=== PATIENT | female | born 1960 | race Two or more races ===

== ENCOUNTER 2025-03-08 08:10 | Emergency (ER) | payer MEDICAID, OTHER ==
[~2025-03-08] VITALS: Ht 162.6 cm; Wt 83.2 kg
--- NOTE | 2025-03-08 08:59 | ED.PDOC ---
GI ASSESSMENT HPI Comments 64 y.o female with PMHX of HTN and DM, presents to the ED for a chief complaint of diffused abdominal pain radiating to her left flank and back associated with nausea, vomiting, body pain that started one day ago. Patient reports ongoing symptoms with no alleviating or precipitating factors. Patient denies any diarrhea, fever, chills, chest pain, SOB, bloody stool, dysuria or hematuria. 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 Family History Family History: Reviewed,noncontributory to illness Social History Smoker: Cigarettes, Less Than 1 Pack/Day Alcohol: Denies ETOH Use Drugs: Denies Drug Use Lives In: Home Constitutional: denies: chills, diaphoresis, fatigue, fever, malaise, sweats, weakness, others EENTM: denies: blurred vision, double vision, ear bleeding, ear discharge, ear drainage, ear pain, ear ringing, eye pain, eye redness, hearing loss, mouth pain, mouth swelling, nasal discharge, nose bleeding, nose congestion, nose pain, photophobia, tearing, throat pain, throat swelling, voice changes, others Respiratory: denies: cough, hemoptysis, orthopnea, SOB at rest, shortness of breath, SOB with excertion, stridor, wheezing, others Cardiovascular: denies: chest pain, dizzy spells, diaphoresis, Dyspnea on exertion, edema, irregular heart beat, left arm pain, lightheadedness, palpitations, PND, syncope, others Gastrointestinal: reports: abdominal pain, nausea, vomiting; denies: abdomen distended, blood streaked bowels, constipated, diarrhea, dysphagia, difficulty swallowing, hematemesis, melena, poor appetite, poor fluid intake, rectal bleeding, rectal pain, others Genitourinary: reports: flank pain; denies: abnormal vagina bleeding, burning, dyspareunia, dysuria, frequency, hematuria, incontinence, pain, , vagina discharge, urgency, others Neurological: denies: dizziness, fainting, headache, left sided numbness, left sided weakness, numbness, paresthesia, pre-existing deficit, right sided numbness, right sided weakness, seizure, speech problems, tingling, tremors, weakness, others Musculoskeletal: reports: back pain, muscle pain; denies: gout, joint pain, joint swelling, muscle stiffness, neck pain, others Integumetry: denies: bruises, change in color, change in hair/nails, dryness, laceration, lesions, lumps, rash, wounds, others Allergic/Immunocompromised: denies: Difficulty Healing, Frequent Infections, Hives, Itching, others Hematologic/Lymphatic: denies: anemia, blood clots, easy bleeding, easy bruising, swollen glands, others Endocrine: denies: excessive hunger, excessive sweating, excessive thirst, excessive urination, flushing, intolerance to cold, intolerance to heat, unexplained weight gain, unexplained weight loss, others Psychiatric: denies: anxiety, bipolar disorder, depression, hopeless, panic disorder, schizophrenia, sleepless, suicidal, others All Other Systems: Reviewed and Negative Physical Exam General Appearance: Moderate Distress HEENT: Normal ENT Inspection, Pharynx Normal, TMs Normal Neck: Full Range of Motion, Non-Tender, Normal, Normal Inspection Respiratory: Chest Non-Tender, Lungs Clear, No Accessory Muscle Use, No Respiratory Distress, Normal Breath Sounds Cardiovascular: No Edema, No JVD, No Murmur, No Gallop, Normal Peripheral Pulses, Regular Rate/Rhythm Breast Exam: Deferred Gastrointestinal: No Organomegaly, Non Tender, No Pulsatile Mass, Normal Bowel Sounds, Soft Genitalia: Deferred Pelvic: Deferred Rectal: Deferred Extremities: No calf tenderness, Normal capillary refill, Normal inspection, Normal range of motion, Non-tender, No pedal edema Musculoskeletal : Apperance: Normal Neurologic: Alert, major sales associate II-XII nml as Tested, No Motor Deficits, Normal Affect, Normal Mood, No Sensory Deficits Cerebellar Function: Normal Reflexes: Normal Skin: Dry, Normal Color, Warm Peripheral Pulses: 3+ Radial (R), 3+ Radial (L) Lymphatic: No Adenopathy Was a procedure done? Was a procedure done?: No GI differential Dx Differential Diagnosis: Constipation, Diverticular disease, Esophagitis, Gastritis/PUD, Gastroenteritis, Inflammatory BD, Electrolyte Imbalance, Food Poisoning, Viral X-Ray, Labs, Meds, VS Vital Signs Date Time Temp Pulse Resp B/P (MAP) Pulse Ox O2 Delivery O2 Flow Rate FiO2 03/08/25 08:21 97.0 90 20 151/77 (101) 95 97.0 Lab Test 03/08/25 08:21 03/08/25 08:15 Range/Units White Blood Count 6.7 4.4-10.8 10^3/uL Red Blood Count 5.13 4.0-5.20 10^6/uL Hemoglobin 16.2 12.2-16.2 g/dL Hematocrit 46.8 H 36.0-46.0 % Mean Corpuscular Volume 91.2 80.0-100.0 fL Mean Corpuscular Hemoglobin 31.5 28.0-32.0 pg Mean Corpuscular Hemoglobin Concent 34.5 32.0-36.0 g/dL Red Cell Distribution Width 14.1 11.8-14.3 % Platelet Count 226 140-450 10^3/uL Mean Platelet Volume 9.1 6.9-10.8 fL Neutrophils (%) (Auto) 68.5 37.0-80.0 % Lymphocytes (%) (Auto) 24.4 10.0-50.0 % Monocytes (%) (Auto) 5.0 0.0-12.0 % Eosinophils (%) (Auto) 1.5 0.0-7.0 % Basophils (%) (Auto) 0.6 0.0-2.0 % Neutrophils # (Auto) 4.6 1.6-8.6 10 ^3/uL Lymphocytes # (Auto) 1.6 0.4-5.4 10 ^3/uL Monocytes # (Auto) 0.3 0-1.3 10 ^3/uL Eosinophils # (Auto) 0.1 0-0.8 10 ^3/uL Basophils # (Auto) 0 0-0.2 10 ^3/uL Nucleated Red Blood Cells 0.1 % Sodium Level 138 136-145 mmol/L Potassium Level 4.2 3.5-5.1 mmol/L Chloride Level 103 98-107 mmol/L Carbon Dioxide Level 27 20-31 mmol/L Anion Gap 8 5-15 Blood Urea Nitrogen 8 L 9-23 mg/dL Creatinine 0.71 0.550-1.02 mg/dL Glomerular Filtration Rate Calc 95 >90 mL/min BUN/Creatinine Ratio 11.3 10.0-20.0 Serum Glucose 245 H 74-106 mg/dL Calcium Level 10.0 8.7-10.4 mg/dL Urine Color Yellow Yellow Urine Clarity Clear Clear Urine pH 6.5 5.0-9.0 Urine Specific Sawyer 1.025 1.001-1.035 Urine Protein 1+ H Negative Urine Ketones Trace Negative Urine Blood Negative Negative /uL Urine Nitrite Negative Negative Urine Bilirubin Negative Negative Urine Urobilinogen 3 H Negative mg/dL Urine Leukocyte Esterase Negative Negative /uL Urine RBC 1 0 - 4 /hpf Urine Microscopic WBC 3 0-5 /HPF Urine Squamous Epithelial Cells Few <5 /hpf Urine Bacteria None seen None Seen /hpf Urine Hyaline Casts Few 0 - 2 /lpf Urine Mucus Few None Seen Urine Glucose 4+ H Normal mg/dL Patient alert. Came in because abdominal discomfort. Vitals stable. Answering questions. Blood pressure slightly elevated. Was given clonidine. Abdomen is soft nontender. Continue monitoring. Blood sugar elevated. She was told to drink plenty of fluids. Urinalysis shows mild bacteria. Was given prescription of Macrobid antibiotic. Explained to the patient. Was told to follow up with her primary care physician. Was told to come back if there is any problem. Time of 1ST Reevaluation: 08:59 Reevaluation 1ST: Unchanged Patient Education/Counseling: Diagnosis, Treatment, Prognosis Family Education/Counseling: No Family Present Departure 1 Departure Time of Disposition: 09:05 Impression: Primary Impression: Uncontrolled diabetes mellitus Qualified Codes: E13.65 - Other specified diabetes mellitus with hyperglycemia Additional Impressions: Hypertensive urgency Urinary tract infection Qualified Codes: N30.00 - Acute cystitis without hematuria Disposition: 01 HOME / SELF CARE / HOMELESS Condition: Good e-Prescriptions Nitrofurantoin Monohydrate Mac (Macrobid) 100 Mg Cap 100 MG PO BID for 5 Days, #10 CAP Prov: ABRAM KAN MD 03/08/25 Discharged With: Self Critical Care Note Critical Care Time?: No Stability Stability form required: No Heart Score Heart Score: Heart Score Response (Comments) Value History N/A 0 EKG N/A 0 Age N/A 0 Risk Factors N/A 0 Troponin N/A 0 Total 0 I personally scribed for ABRAM KAN MD ([email or web address] on 03/08/25 at 08:59. Electronically submitted by Rajwinder Maguire ([facility]). ABRAM KAN MD Mar 08, 2025 08:59
[2025-03-08 09:10] LABS: Chloride 103 mmol/L (98-107); Potassium 4.2 mmol/L (3.5-5.1); Sodium 138 mmol/L (136-145)
[2025-03-08 09:11] LABS: Anion Gap 8 (5-15); Carbon Dioxide 27 mmol/L (20-31)
[2025-03-08 09:12] LABS: Basophils # (auto) 0 10 ^3/uL (0-0.2); Basophils % (auto) 0.6 % (0.0-2.0); Eosinophils # (auto) 0.1 10 ^3/uL (0-0.8); Eosinophils % (auto) 1.5 % (0.0-7.0); Hematocrit 46.8 % (36.0-46.0); Hemoglobin 16.2 g/dL (12.2-16.2); Lymphocytes # (auto) 1.6 10 ^3/uL (0.4-5.4); Lymphocytes % (auto) 24.4 % (10.0-50.0); Mean Corpuscular Hemoglobin 31.5 pg (28.0-32.0); Mean Corpuscular Hgb Conc. 34.5 g/dL (32.0-36.0); Mean Corpuscular Volume 91.2 fL (80.0-100.0); Monocytes # (auto) 0.3 10 ^3/uL (0-1.3); Neutrophils # (auto) 4.6 10 ^3/uL (1.6-8.6); Neutrophils % (auto) 68.5 % (37.0-80.0); Nucleated Red Blood Cells % 0.1 %; Platelet Count (auto) 226 10^3/uL (140-450); Red Blood Cells 5.13 10^6/uL (4.0-5.20); Red Cell Distribution Width 14.1 % (11.8-14.3); White Blood Cell 6.7 10^3/uL (4.4-10.8)
[2025-03-08] MEDS: cloNIDine HCL 0.1 MG TAB PO ONE (09:15)
[2025-03-08 09:16] LABS: BUN/Creatinine Ratio 11.3 (10.0-20.0)
[2025-03-08 09:17] LABS: Blood Urea Nitrogen 8 mg/dL (9-23); Glucose 245 mg/dL (74-106)
[2025-03-08 09:31] LABS: Urine Bacteria None Seen /hpf (None Seen)
[2025-03-08 09:42] LABS: Urine Blood Negative /uL (Negative); Urine Clarity Clear (Clear); Urine Color Yellow (Yellow); Urine Hyaline Cast FEW /lpf (0 - 2); Urine Mucus FEW (None Seen); Urine Protein, UAD 1+ (Negative); Urine Specific Gravity 1.025 (1.001-1.035); Urine Squamous Epithelial Cell FEW /hpf (<5); Urine Urobilinogen 3 mg/dL (Negative); Urine WBC 3 /HPF (0-5); Urine pH 6.5 (5.0-9.0)
[2025-03-08] MEDS ORDERED: NITR-87 PO (09:59)
[2025-03-08 10:25] VITALS: BP 115/69; PULSE 89; RESP 13; TEMP 97.8; O2SAT 96
== END 2025-03-08 10:36 | disposition home or self-care (01) ==
LOC: ER 08:10
DX: E11.65 Type 2 diabetes mellitus with hyperglycemia (principal); I16.0 Hypertensive urgency; N39.0 Urinary tract infection, site not specified; I10 Essential (primary) hypertension; F17.210 Nicotine dependence, cigarettes, uncomplicated
CPT/HCPCS: 36415; 80048; 81001; 85025

== ENCOUNTER 2025-04-13 12:44 | Emergency (ER) | payer MEDICAID ==
[~2025-04-13] VITALS: Ht 162.6 cm; Wt 85.6 kg
[~2025-04-13 12:44] MED LIST: NITR-87 PO
[2025-04-13] MEDS ORDERED: CLIN1CAP70 PO (13:15)
[2025-04-13] MEDS ORDERED: TRAM-626 PO (13:15)
--- NOTE | 2025-04-13 13:27 | ED.PDOC ---
Eye-HPI HPI Comments A 64-YEAR-OLD FEMALE PRESENTS WITH A CHIEF COMPLAINT OF LOWER TOOTH PAIN X 2 DAYS. PATIENT STATES THAT THE PAIN IS MADE WORSE WHENEVER SHE EATS OR DRINKS ANYTHING. PATIENT WEARS DENTURES. PT DENIES FEVER, SOB, CHEST PAIN, NAUSEA, VOMITING, HEADACHE, DIZZINESS AND OTHER COMPLAINTS. NO OTHER SYMPTOMS REPORTED AT THIS [facility] OF CARE. Chief Complaint: Tooth Pain Time Seen by MD: 13:00 Reviewed Notes: Nurses Notes, Medications, Allergies Allergies: Coded Allergies: NO KNOWN ALLERGIES (Unverified , 03/08/25) Home Meds Active Scripts Tramadol HCl (Tramadol HCl) 50 Mg Tab, 50 MG PO TID, #20 TAB Prov:ARA OVALLE 04/13/25 Clindamycin Hcl (Clindamycin Hcl) 300 Mg Cap, 300 MG PO QID for 10 Days, #30 CAP Prov:ARA OVALLE 04/13/25 Nitrofurantoin Monohydrate Mac (Macrobid) 100 Mg Cap, 100 MG PO BID for 5 Days, #10 CAP Prov:ABRAM KAN MD 03/08/25 Information Source: Patient Mode of Arrival: Ambulatory Timing: Days Duration: Since onset, Days Quality: Pain, Red Lids: Normal Conjunctiva: Normal Cornea: Normal Pupils: Normal EOM: Normal Fundus: Normal Slit lamp exam: Normal Anterior chamber: Normal Mouth Location: Lower, Tooth/Teeth, Gums Mouth: Lower, Molar, Tender, Carious ENT Ear Exam: Normal Nose: Normal Sinuses: Normal Oropharynx: Normal Onset: Spontaneous Throat Exposed to: None History of: None Last Tetanus: UTD Modifying factors: Cold, Chewing Associated signs and symptoms: Tooth Pain Past Medical History PAST MEDICAL HISTORY: DM, HTN 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 History Family History Family History: Reviewed,noncontributory to illness Social History Smoker: Cigarettes, Less Than 1 Pack/Day Alcohol: Denies ETOH Use Drugs: Denies Drug Use Lives In: Home Constitutional: denies: chills, diaphoresis, fatigue, fever, malaise, sweats, weakness, others EENTM: reports: mouth pain; denies: blurred vision, double vision, ear bleeding, ear discharge, ear drainage, ear pain, ear ringing, eye pain, eye redness, hearing loss, mouth swelling, nasal discharge, nose bleeding, nose congestion, nose pain, photophobia, tearing, throat pain, throat swelling, voice changes, others Respiratory: denies: cough, hemoptysis, orthopnea, SOB at rest, shortness of breath, SOB with excertion, stridor, wheezing, others Cardiovascular: denies: chest pain, dizzy spells, diaphoresis, Dyspnea on exertion, edema, irregular heart beat, left arm pain, lightheadedness, palpitations, PND, syncope, others Gastrointestinal: denies: abdomen distended, abdominal pain, blood streaked bowels, constipated, diarrhea, dysphagia, difficulty swallowing, hematemesis, melena, nausea, poor appetite, poor fluid intake, rectal bleeding, rectal pain, vomiting, others Genitourinary: denies: abnormal vagina bleeding, burning, dyspareunia, dysuria, flank pain, frequency, hematuria, incontinence, pain, , vagina discharge, urgency, others Neurological: denies: dizziness, fainting, headache, left sided numbness, left sided weakness, numbness, paresthesia, pre-existing deficit, right sided numbness, right sided weakness, seizure, speech problems, tingling, tremors, weakness, others Musculoskeletal: denies: back pain, gout, joint pain, joint swelling, muscle pain, muscle stiffness, neck pain, others Integumetry: denies: bruises, change in color, change in hair/nails, dryness, laceration, lesions, lumps, rash, wounds, others Allergic/Immunocompromised: denies: Difficulty Healing, Frequent Infections, Hives, Itching, others Hematologic/Lymphatic: denies: anemia, blood clots, easy bleeding, easy bruising, swollen glands, others Endocrine: denies: excessive hunger, excessive sweating, excessive thirst, excessive urination, flushing, intolerance to cold, intolerance to heat, unexplained weight gain, unexplained weight loss, others Psychiatric: denies: anxiety, bipolar disorder, depression, hopeless, panic disorder, schizophrenia, sleepless, suicidal, others All Other Systems: Reviewed and Negative Physical Exam General Appearance: No Apparent Distress, Normal HEENT: Normal ENT Inspection, PERRL/EOMI, Pharynx Normal, TMs Normal, Other (ERYTHEMA AND SWELLING ON LOWER GUM AROUND TOOTH, DENTAL INFECTION, NO FACIAL SWELLING. ) Neck: Full Range of Motion, Non-Tender, Normal, Normal Inspection Respiratory: Chest Non-Tender, Lungs Clear, No Accessory Muscle Use, No Respiratory Distress, Normal Breath Sounds Cardiovascular: No Edema, No JVD, No Murmur, No Gallop, Normal Peripheral Pulses, Regular Rate/Rhythm Breast Exam: Deferred Gastrointestinal: No Organomegaly, Non Tender, No Pulsatile Mass, Normal Bowel Sounds, Soft Genitalia: Deferred Pelvic: Deferred Rectal: Deferred Extremities: No calf tenderness, Normal capillary refill, Normal inspection, Normal range of motion, Non-tender, No pedal edema Musculoskeletal : Apperance: Normal Neurologic: Alert, 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 Was a procedure done?: No EENT DIFF Eye: Other Ear: Otitis Media, Dental, Pharyngitis X-Ray, Labs, Meds, VS Vital Signs Date Time Temp Pulse Resp B/P (MAP) Pulse Ox O2 Delivery O2 Flow Rate FiO2 04/13/25 12:45 98.0 104 16 170/74 (106) 93 98.0 X-Ray, Labs, Meds, VS Comment EXTERNAL MEDICAL RECORDS: NONE INDEPENDENT HISTORIANS: NONE SOCIAL DETERMINANTS OF HEALTH: NONE LABS ORDERED: NONE REVIEWED AND INTERPRETED RESULTS: NONE IMAGING ORDERED: NONE TREATMENTS ORDERED: NONE PATIENT'S CASE AND RESULTS HAVE BEEN DISCUSSED WITH DR. ESCUDERO AND THEY AGREE WITH MY PLAN OF CARE. RX: CLINDAMYCIN AND ULTRAM 50MG I HAVE DISCUSSED IMAGING AND LAB RESULTS WITH THE PATIENT AND HAVE INSTRUCTED THE PATIENT TO FOLLOW UP WITH THEIR PCP IN 1-2 DAYS. THE PATIENT FULLY UNDERSTANDS THEIR RESULTS AND ARE AWARE THEY NEED TO FOLLOW UP WITH THEIR PCP FOR FURTHER EVALUATION IF THEIR SYMPTOMS PERSIST. Time of 1ST Reevaluation: 13:49 Reevaluation 1ST: Unchanged Patient Education/Counseling: Diagnosis, Treatment, Need For Follow Up Family Education/Counseling: Diagnosis, Treatment, Need For Follow Up Medical Screening: No EMC Exist At This Time SEPSIS Sepsis Screen Date sepsis recognized/suspect: Apr 13, 2025 Time Sepsis recognized/suspect: 1258 Recent Procedure: No On Antibiotic Therapy: No Respiratory Rate >20: No Heart Rate >90: Yes Temp<36 C (96.8 F) or >38.3 C: No SBP <90 or MAP <65 mmHG: No New Acute Mental Status Change: No Is the patient on CPAP, BIPAP,: No Vital Signs Date Time Temp Pulse Resp B/P (MAP) Pulse Ox O2 Delivery O2 Flow Rate FiO2 04/13/25 12:45 98.0 104 16 170/74 (106) 93 98.0 Departure 1 Departure Time of Disposition: 13:49 Impression: Primary Impression: Infected dental caries Disposition: HOME / SELF CARE / HOMELESS Condition: Fair Additional Instructions: FOLLOW-UP WITH PCP IN 1 TO 2 DAYS. TAKE MEDICATIONS PRESCRIBED. RETURN TO ED FOR ANY NEW OR WORSENING SYMPTOMS. e-Prescriptions Tramadol HCl (Tramadol HCl) 50 Mg Tab 50 MG PO TID, #20 TAB Prov: ARA OVALLE 04/13/25 Clindamycin Hcl (Clindamycin Hcl) 300 Mg Cap 300 MG PO QID for 10 Days, #30 CAP Prov: ARA OVALLE 04/13/25 Discharged With: Self Critical Care Note Critical Care Time?: No Stability Stability form required: No Heart Score Heart Score: Heart Score Response (Comments) Value History N/A 0 EKG N/A 0 Age N/A 0 Risk Factors N/A 0 Troponin N/A 0 Total 0 I personally scribed for ARA OVALLE ([email or web address]) on 04/13/25 at 13:27. Electronically submitted by Colt Valadez ([email or web address]). ARA OVALLE Apr 13, 2025 13:27
[2025-04-13 14:28] VITALS: BP 145/85; PULSE 97; RESP 18; TEMP 98.3; O2SAT 92
== END 2025-04-13 14:30 | disposition home or self-care (01) ==
LOC: ER 12:44
DX: K02.9 Dental caries, unspecified (principal); K04.7 Periapical abscess without sinus; F17.210 Nicotine dependence, cigarettes, uncomplicated; I10 Essential (primary) hypertension; E11.9 Type 2 diabetes mellitus without complications; Z98.890 Other specified postprocedural states; Z79.899 Other long term (current) drug therapy